=== PATIENT | female | born 1980 | race Hispanic/Latino ===

== ENCOUNTER → 2017-12-16 | Outpatient (CLI) | payer MEDICARE | END | disposition home or self-care (01) | LOC: RAH 09:05 | PROVIDERS: ATTEND Family Medicine | DX: K80.20 Calculus of gallbladder without cholecystitis without obstruction (principal) | CPT/HCPCS: 76700 ==

== ENCOUNTER 2018-02-02 08:49 | Day surgery (SDC) | payer MEDICARE ==
[~2018-02-02] VITALS: Ht 160 cm; Wt 72.1 kg
[2018-02-02] VITALS (9 sets, daily range): BP systolic 119–149; BP diastolic 79–95
[~2018-02-02 08:49] MED LIST: CETI10TA57 PO; CLON0.5T23 PO; LEVE500T8 PO; MIRA50TA PO; OXCA300T28 PO; OXYB5TAB10 PO; PANT40TA25 PO; SODIUM CHLORIDE 0.9% 1000ML 1,000 ML IV ONE
[2018-02-02] MEDS ORDERED: PROPOFOL 10 MG/ML 20ML VIAL IV ONE (11:33)
== END 2018-02-02 12:42 | disposition home or self-care (01) ==
LOC: ENDO 08:49 → DAH 08:49 → ENDO 12:42
PROVIDERS: ATTEND Internal Medicine Gastroenterology
DX: K29.50 Unspecified chronic gastritis without bleeding (principal); K31.7 Polyp of stomach and duodenum; K22.8 Other specified diseases of esophagus; G40.909 Epilepsy, unspecified, not intractable, without status epilepticus; Z79.899 Other long term (current) drug therapy; Z88.0 Allergy status to penicillin; G80.9 Cerebral palsy, unspecified; E78.5 Hyperlipidemia, unspecified; J45.909 Unspecified asthma, uncomplicated; Z98.890 Other specified postprocedural states
CPT/HCPCS: 36415; 43239; 84703; 88305; 88312; 88342; A4606; J2704; J7030

== ENCOUNTER → 2018-07-28 | Outpatient (CLI) | payer MEDICARE ==
[~2018-07-28] MED LIST changes: -SODIUM CHLORIDE 0.9% 1000ML 1,000 ML IV ONE
== END | disposition home or self-care (01) ==
LOC: RAH 13:09
PROVIDERS: ATTEND Urology
DX: N39.0 Urinary tract infection, site not specified (principal)
CPT/HCPCS: 76770

== ENCOUNTER → 2019-02-02 | Outpatient (CLI) | payer MEDICARE | END | disposition home or self-care (01) | LOC: OIH 08:03 | PROVIDERS: ATTEND Family Medicine | DX: M25.562 Pain in left knee (principal) | CPT/HCPCS: 73560 ==

== ENCOUNTER → 2019-03-30 | Outpatient (CLI) | payer MEDICARE ==
[~2019-03-30] MED LIST changes: +LEVE-43 PO; -LEVE500T8 PO; -OXYB5TAB10 PO; +OXYB5TAB15 PO
--- NOTE | 2019-03-30 12:30 | NUR ---
MBSS COMPLETED. -S/S OF ASPIRATION. RECOMMEND FINELY CHOPPED, THIN LIQUIDS; PILLS WHOLE WITH LIQUIDS. Addendum: 03/30/19 at 1235 by RAUL CARTAGENA, [facility] Amended: Links added.
== END | disposition home or self-care (01) ==
LOC: RAH 10:03
PROVIDERS: ATTEND Family Medicine
DX: R13.11 Dysphagia, oral phase (principal); K21.9 Gastro-esophageal reflux disease without esophagitis; G80.9 Cerebral palsy, unspecified
CPT/HCPCS: 74230; 92611

== ENCOUNTER → 2019-10-03 | Outpatient (CLI) | payer MEDICARE | END | disposition home or self-care (01) | LOC: RAH 08:03 | PROVIDERS: ATTEND Family Medicine | DX: R14.0 Abdominal distension (gaseous) (principal); Z90.49 Acquired absence of other specified parts of digestive tract | CPT/HCPCS: 76700 ==

== ENCOUNTER → 2020-02-14 | Outpatient (CLI) | payer MEDICARE | END | disposition home or self-care (01) | LOC: OIH 09:58 | PROVIDERS: ATTEND Family Medicine | DX: M54.9 Dorsalgia, unspecified (principal); M54.5 Low back pain | CPT/HCPCS: 72100; 73502 ==

== ENCOUNTER → 2020-02-23 | Outpatient (CLI) | payer MEDICARE | END | disposition home or self-care (01) | LOC: OIH 09:58 | PROVIDERS: ATTEND Family Medicine | DX: M79.642 Pain in left hand (principal); M25.532 Pain in left wrist; M79.632 Pain in left forearm; Z91.81 History of falling | CPT/HCPCS: 73090; 73100; 73120 ==

== ENCOUNTER → 2020-08-27 | Outpatient (CLI) | payer MEDICARE ==
[~2020-08-27] MED LIST changes: -PANT40TA25 PO; +PANT40TA54 PO
== END | disposition home or self-care (01) ==
LOC: RAH 09:25
PROVIDERS: ATTEND Family Medicine
DX: N83.291 Other ovarian cyst, right side (principal)
CPT/HCPCS: 76856

== ENCOUNTER → 2020-12-16 | Outpatient (CLI) | payer MEDICARE ==
[~2020-12-16] MED LIST changes: +IOHEXOL-350 75 ML VIAL IV ONE
== END | disposition home or self-care (01) ==
LOC: RAH 10:16
PROVIDERS: ATTEND Internal Medicine Gastroenterology
DX: M62.58 Muscle wasting and atrophy, not elsewhere classified, other site (principal); R10.30 Lower abdominal pain, unspecified; Z90.49 Acquired absence of other specified parts of digestive tract
CPT/HCPCS: 74178; Q9967

== ENCOUNTER 2021-11-20 14:17 | Emergency (ER) | payer MEDICARE ==
[~2021-11-20] VITALS: Ht 157.5 cm; Wt 69.4 kg
[~2021-11-20 14:17] MED LIST changes: -IOHEXOL-350 75 ML VIAL IV ONE
[2021-11-20] MEDS ORDERED: HYDROCODONE/ACETAMINOPHEN 5/325 MG TAB PO ONE (15:00)
[2021-11-20 15:40] LABS: BASOPHILS % (AUTO) 0.2 % (0.0-5.0); EOSINOPHILS % (AUTO) 1.5 % (0.0-8.0); HEMATOCRIT 40.5 % (36-48); LYMPHOCYTES % (AUTO) 40.3 % (21.0-51.0); MEAN CORPUSCULAR HEMOGLOBIN 30.4 pg (27.0-33.0); MEAN CORPUSCULAR HGB CONC 31.9 g/dL (32.0-36.0); MEAN CORPUSCULAR VOLUME 95.5 fL (79-99); MONOCYTES % (AUTO) 5.8 % (3.0-13.0); PLATELET COUNT (AUTO) 228 K/uL (130-400); RED BLOOD CELL COUNT(AUTO) 4.24 MIL/uL (4.00-5.50); RED CELL DISTRIBUTION WIDTH 12.7 % (11.0-15.5); WHITE BLOOD COUNT (AUTO) 8.2 K/uL (4.8-10.8)
[2021-11-20 16:04] LABS: CREATININE 0.8 mg/dL (0.5-1.5); POTASSIUM 3.7 mmol/L (3.5-5.1)
[2021-11-20 16:08] LABS: ALBUMIN 3.4 g/dL (3.5-5.0); TOTAL PROTEIN, SERUM 8.2 g/dL (6.0-8.3)
[2021-11-20 16:20] LABS: BILIRUBIN,TOTAL 0.1 mg/dL (0.2-1.0)
[2021-11-20] MEDS ORDERED: ACET-2247 PO (16:34)
[2021-11-20] MEDS ORDERED: CYCL10TA16 PO (16:34)
[2021-11-20] MEDS ORDERED: NAPR-1180 PO (16:34)
[2021-11-20 17:09] VITALS: BP 118/75
== END 2021-11-20 17:11 | disposition home or self-care (01) ==
LOC: EDH 14:17
DX: S20.211A Contusion of right front wall of thorax, initial encounter (principal); Z88.1 Allergy status to other antibiotic agents; Z79.899 Other long term (current) drug therapy; W18.30XA Fall on same level, unspecified, initial encounter; Y93.89 Activity, other specified; Y92.89 Other specified places as the place of occurrence of the external cause; Y99.8 Other external cause status
CPT/HCPCS: 36415; 71250; 80053; 84484; 84703; 85025

== ENCOUNTER 2022-06-16 11:24 | Emergency (ER) | payer MEDICARE ==
[~2022-06-16] VITALS: Ht 162.6 cm; Wt 83.9 kg
[~2022-06-16 11:24] MED LIST changes: +ACET-2247 PO; +CYCL10TA16 PO; +NAPR-1180 PO
[2022-06-16] MEDS: IBUPROFEN 800 MG TAB ONE (13:51)
[2022-06-16] MEDS: IBUPROFEN 800 MG TAB PO ONE (13:51)
[2022-06-16 13:56] VITALS: BP 126/82
== END 2022-06-16 13:58 | disposition home or self-care (01) ==
LOC: EDH 11:24
DX: S40.011A Contusion of right shoulder, initial encounter (principal); S70.11XA Contusion of right thigh, initial encounter; Z88.1 Allergy status to other antibiotic agents; Z79.899 Other long term (current) drug therapy; W19.XXXA Unspecified fall, initial encounter; Y93.89 Activity, other specified; Y92.89 Other specified places as the place of occurrence of the external cause; Y99.8 Other external cause status
CPT/HCPCS: 73030; 73552